=== PATIENT | female | born 1960 | race Caucasian/White ===

== ENCOUNTER → 2016-08-24 | Day surgery (SDC) | payer OTHER, MEDICARE ==
[~2016-08-24] VITALS: Ht 165.1 cm; Wt 128.4 kg
[~2016-08-24] MED LIST: ACETAMINOPHEN325 M3 PO; ALPRAZOLAM0.25 M1 PO; ASPIRIN EC81 M1 PO; BENADRYL25 MG PO; DEXILANT60 M1 PO; LIDODERM1 EACH TOP; LIPITOR40 M1 PO; MECLIZINE HCL12.5 M1 PO; NEURONTIN100 M1 PO; NOVOLOG100 UNIT/2 SC; PAXIL40 M1 PO; PLAVIX75 M1 PO; RENVELA800 M1 PO; SENNA8.6 M3 PO; SENSIPAR30 M1 PO; SILVADENE20 GM TOP; SODIUM BICARBO650 M1 PO; WELLBUTRIN XL150 M2 PO
--- NOTE | 2016-08-24 11:01 | Operative Report ---
Operative/Inv Procedure Report Surgery Date: 08/24/16 Name of Procedure: Left brachiocephalic AV fistula Pre-Operative Diagnosis: Chronic kidney disease Post-Operative Diagnosis: Same Estimated Blood Loss: less than 50ml Surgeon/First Crusher: MADHURI CHILD MD Anesthesia: local monitored anesthesi Operative/Procedure Note Note: The patient was brought to the operating room and placed on the operating table in the supine position. After anesthesia was induced, the patient was prepped and draped in the usual fashion. Additionally, a preoperative dose of clindamycin was administered prior to incision. After performing a timeout to confirm the patient and procedure, we began by anesthetizing the region approximately 1 cm below the left antecubital crease on the anterior forearm. We used a mixture of 1% lidocaine and half percent Marcaine plain mixed 50-50. I then made approximately a 3 cm incision overlying both the cephalic vein and the brachial artery. I dissected down through a large amount of dense adipose tissue. We encountered the vein and it was dissected free for approximately 2 cm. I then proceeded to dissect out the brachial artery. This was extremely deep , and small. The artery measured approximately 3 mm in diameter. There was a palpable pulse in the artery. The patient was given 3000 units of intravenous heparin and the artery was encircled proximally and distally and occluded with bulldog clamps. The cephalic vein was swung over to approximate the artery and sewn in end-to-side fashion with a 6-0 running Prolene suture. The clamps were released at the completion of the anastomosis and there was strong flow through the fistula. The distal clamp was then released and a distal pulse was present in the brachial artery, and in the radial artery at the wrist. Some topical fibrillar was placed in the wound for hemostasis. The wound was irrigated, and closed in 2 layers including a running 3-0 subdermal Vicryl suture, and a running 4-0 subcuticular Monocryl suture. Topical Dermabond skin glue was applied. There were no specimens, I was present and scrubbed throughout. At the completion of the case there was a palpable thrill in the antecubital fossa and a palpable radial pulse. Discharge Disposition: PACU
== END ==
LOC: STS 01:20
DX: N18.6 End stage renal disease (principal); E11.8 Type 2 diabetes mellitus with unspecified complications; Z79.84 Long term (current) use of oral hypoglycemic drugs; E78.5 Hyperlipidemia, unspecified; I11.9 Hypertensive heart disease without heart failure; I73.9 Peripheral vascular disease, unspecified
CPT/HCPCS: 82436; J1644; J2250